=== PATIENT | male | born 1970 | race Caucasian/White ===

== ENCOUNTER → 2019-07-12 | Outpatient (CLI) | payer MEDICARE, MEDICAID ==
--- NOTE | 2019-07-13 11:13 | REP ---
Whole body PET CT scan for evaluation of lung lesion: The the patient has a clinical history of a right lung mass. The and a spiculated nodule in the apex of the left lung identified by CT on 06/10/2019. Additionally, the patient has history of neurofibromatosis. Whole-body scanning is performed from skull base to the upper thighs. Neck and supraclavicular areas: There are no hypermetabolic foci. On the CT accompanying the examination there is a polyp/mucosal cyst posteriorly in the right maxillary sinus with no radio tracer uptake. Chest: There is a large hypermetabolic focus anteriorly in the right upper lobe measuring approximate 7.9 cm transverse diameter by 8 cm in craniocaudad diameter by 7 cm AP diameter. 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 The maximal standard uptake value of this mass is 9.3, compatible with neoplasm. There is a small focus of uptake in the pleura at the anterior inferior margin of this mass with a maximal standard uptake value of 6.0. The spiculated nodule in the apex of the left lung demonstrates non hypermetabolic uptake with a maximal standard uptake value of 2.3. There are no mediastinal or hilar hypermetabolic foci. There is uptake in both right and left lobes of the thyroid. This could be an anatomic variant or could be evidence for thyroiditis. There are no hypermetabolic foci in the right or left axilla. Abdomen, pelvis and upper thighs: There are no hypermetabolic foci in the right and left adrenals or in the hepatic parenchyma. There are no mesenteric or retroperitoneal foci. However, the the the there is a hypermetabolic focus in the cecum with the maximal standard uptake value measuring 6.2 the. Bowel uptake is otherwise nonspecific. Colonoscopy might be considered for further evaluation of this cecal focus. There are no skeletal foci. Impression: The patient's known large right upper lobe mass is hypermetabolic. There is a small hypermetabolic focus in the pleura anterior inferior to this mass. There is central photopenia within the mass compatible with central necrosis. The spiculated nodule in the apex of the left upper lobe demonstrates non hypermetabolic uptake. There is a hypermetabolic focus in the cecum. Consider colonoscopy for further evaluation. There are no adrenal or hepatic foci. The study is performed with 8.39 mCi of F 18 FDG. Electronically Signed by Bear Noel MD 07/13/2019 11:05 A
== END ==
LOC: M PLARAD 13:15
PROVIDERS: ATTEND Psychiatry & Neurology Neurology
DX: R91.8 Other nonspecific abnormal finding of lung field (principal)
CPT/HCPCS: 78815; A9552